=== PATIENT | female | born 1975 | race Caucasian/White ===

== ENCOUNTER 2025-03-08 14:07 | Outpatient (REF) | payer OTHER, SELFPAY ==
--- OUTSIDE RECORDS SUMMARY | 2024-07-13 12:30 | XMS_ITS | Encounter Summary ---
Author Organization [facility] Address [address] [place] [address] Care Team Providers Care Thoracic Surgeon Name Role Phone Corinne Goins PA-C Primary Care Provider [phone] Reason for Visit * Auth/Cert Inpatient Observation or Outpatient Surgery (Routine) - New Request Specialty Diagnoses / Procedures Referred By Nico t Referred To Contact Diagnoses Special screening for malignant neoplasms, colon Special screening for malignant neoplasms, colon [Z12.11] Procedures Case Request: COLONOSCOPY FL COLONOSCOPY FLX DX W/COLLJ SPEC WHEN PFRMD COLONOSCOPY Yung Dutton MD [address] [place] [address] Referral ID Status Reason Start Date Expiration Date V isits Requested Visits Authorized [id number] New Request 06/10/2024 06/10/2025 1 1 Encounter Details Date Type Department Care Team Description 07/13/2024 11:30 AM [facility] Hospital Encounter [facility] Endoscopy [address] [place] [address] Yung Dutton MD Social History Tobacco Use Types Packs/Day Years Used Date Smoking Tobacco: Never Smokeless Tobacco: Never Alcohol Use Standard Drinks/Week Comments Yes 0 (1 standard drink = 0.6 oz pur e alcohol) social Social Connection and Isolat ion Panel [NHANES] Answer Date Recorded In a typical week, how many times do you talk on the phone with family, friends, or neighbors? More than three times a week 07/16/2024 How often do you get togethe r with friends or relatives? More than three times a week 07/16/2024 How often do you attend [facility] or church services? More than 4 times per year 07/16/2024 Do you belong to any clubs o r organizations such as yazdanism groups, unions, fraternal or athletic groups, or school groups? Yes 07/16/2024 How often do you attend meet ings of the clubs or organizations you belong to? More than 4 times per year 07/16/2024 Are you , , di vorced, , never , or living with a partner? 07/16/2024 Overall Financial Resource Strain (CARDIA) Answe r Date Recorded How hard is it for you to pa y for the very basics like food, housing, medical care, and heating? Not hard at all 07/16/2024 Hunger Vital Sign Answer Date Recorded Within the past 12 months, y ou worried that your food would run out before you got the money to buy more. Never true 07/16/20 24 Within the past 12 months, t he food you bought just didn't last and you didn't have money to get more. Never true 07/16/2024 PRAPARE - Transportation Answer Date Re corded In the past 12 months, has l ack of transportation kept you from medical appointments or from getting medications? No 07/02 In the past 12 months, has l ack of transportation kept you from meetings, work, or from getting things needed for daily living? No 07/16/2024 Housing Stability Vital Sign Answer Stefan e Recorded In the last 12 months, was t here a time when you were not able to pay the mortgage or rent on time? No 07/16/2024 In the last 12 months, how many places have you lived? 1 07/16/2024 In the last 12 months, was t here a time when you did not have a steady place to sleep or slept in a snf (including now)? No 07/16/2024 Sex and Gender Information Value Date Recorded Sex Assigned at Female 03/22/2021 10:24 AM EDT Gender Identity Female 03/22/2021 10:24 AM EDT Sexual Orientation Not on file Job Start Date Occupation Industry Not on file Not on file Not on file documented as of this encounter Plan of Treatment Not on file documented as of this encounter Visit Diagnoses Diagnosis Special screening for malignant neoplasms, colon- Primary documented in this encounter Admitting Diagnoses Diagnosis Special screening for malignant neoplasms, colon documented in this encounter Care Teams Thoracic Surgeon Relationship Specialty Start Date End Date Corinne Goins PA-C PCP - General Family Medicine 03/15/24 documented as of this encounter
--- NOTE | ~2025-03-08 | XR_ITS ---
EXAMINATION: XR SCOLIOSIS TECHNIQUE: AP views of the cervical, thoracic, and lumbar spine. There was stitching of the AP views. INDICATION: Scoliosis PRIOR: None FINDINGS: Coronal balance: Neutral. The geometric center of C7 projected to the center of S1. Curvature: Cervical thoracic: 18 degrees convex left with apex at T4. Thoracolumbar: 27 degrees convex right with apex at T10 Lumbar: 33 degrees convex left with apex at L3-4. There is a mild rotational component in the lumbar spine. Moderate degenerative disc disease and facet arthropathy is noted along the right side of the lumbar spine. There is sclerosis and narrowing of the right SI joint. [place] Risser Stage: 5: Completely ossified iliac crest apophysis and closed physis. XR/XR scoliosis survey IMPRESSION: Moderate scoliosis with mild rotational component and degenerative changes in the lumbar spine with a neutral coronal balance. Electronically signed by: Arnav Ryder MD 03/08/2025 02:57 PM EDT
--- OUTSIDE RECORDS SUMMARY | 2025-03-08 15:01 | XMS_ITS | Encounter Summary ---
Author Organization [facility] Address [address] [place] [id number] Care Team Providers Care Loss Prevention Guard Name Role Phone Hailee Elliott APRN Primary Care Provider Un available Thang Christian MD Primary Care Provider [phone] Encounter Details Date Type Department Care Team (Late st Contact Info) Description 09/30/2023 Scanned Document [facility] Department of Internal Medicine [place] [address] [place] [phone] Hailee Elliott APRN *need valid address Social History Tobacco Use Types Packs/Day Years Used Date Smoking Tobacco: Never Smokeless Tobacco: Never Alcohol Use Standard Drinks/Week Comments Yes 0 (1 standard drink = 0.6 oz pur e alcohol) Comments Unknown Sex and Gender Information Value Date Recorded Sex Assigned at Female 06/22/2023 5:16 PM EDT Legal Sex Female 7:53 PM EST Gender Identity Not on file Sexual Orientation Not on file documented as of this encounter Plan of Treatment Upcoming Encounters Date Type Department Care Team (Late st Contact Info) Description 04/14/2025 7:40 AM EDT Consult [facility] [place] [facility] [address] [place] [phone] Lorena Schafer APRN 7 [facility] [address] [place] [phone] documented as of this encounter Visit Diagnoses Not on filedocumented in this encounter Care Teams Loss Prevention Guard Relationship Specialty Start Date End Date Hailee Elliott APRN PCP - General Internal Medicine 10/16/22 03/16/24 Thang Christian MD PCP - General Family Medicine 04/05/24 documented as of this encounter
--- OUTSIDE RECORDS SUMMARY | 2025-03-08 15:01 | XMS_ITS | Patient Health Record ---
Author Organization [facility] [address] Address [address] [place] [address] Care Team Providers Care Speech Language Pathology Assistant Name Role Phone SethCorinne barnard Primary Care Provider DIMAS Thomson Unavailable [phone] Allergies No Known Allergies Reason For Referral No Information Medications Medication SIG (Take, Route, Frequency, Duration) Notes Start Date End Date Status hydroCHLOROthiazide 25 MG 1 tablet in th e morning Orally Once a day Active Losartan Potassium 25 MG 1 tablet Orally Once a day Active Problems Problem Type SNOMED Code ICD Code Onset Dates Problem Status W/U Status Risk Notes Problem Essential hypertension (64448657) Essential (primary) hypertension (I10) Active confirmed Problem Obese class II (763190418211639 ) BMI 39.0-39.9,adult (Z68.39) Active confirmed Problem Morbid obesity (573309637) Severe obesity (BMI 35.0-39.9) with comorbidity (E66.01) Active confirmed Vital Signs Heart Rate 84 /min 03/08/2025 Oximetry 99 % 03/08/2025 Blood pressure diastolic 78 mm Hg 03/08/2025 Height 66 in 03/08/2025 Blood pressure systolic 130 mm Hg 03/08/2025 Weight 246.8 lbs 03/08/2025 BMI 39.83 kg/m2 03/08/2025 Encounters Encounter Location Date Provider Diagnosis [facility] [address] [place] [address] 03/08/2025 DIMAS ANGLIN Severe obesity (BMI 35.0-39.9) with comorbidity E66.01 ; BMI 39.0-39.9,adult Z68.39 and Encounter for examination of blood pressure without abnormal findings Z01.30 Assessments Encounter Date Diagnosis (ICD Code) Assessment Notes Treatment Notes Treatment Clinical Notes Section Notes 03/08/2025 BMI 39.0-39.9,adul t (ICD-10 - Z68.39) Melissa is a 50-year-old female with a past medical history of essential hypertension, waking, arthritis who presents to the office today for weight management. 03/08/2025: BMI 39.83, weight 246.8 holding off on prescribing GLP-1 as patient is due to have a spinal fusion soon. After surgery will convene about Zepbound. We spent a lot of time discussing the relationship between food, exercise, sleep, mental health and obesity. Patient was counseled on the importance EATING local, organic food when possible. Patient was educated on clean 15 and dirty dozen. I provided information about reading books called The Food Rules by Dave Coley and Eat Fat Get Lean by Dr Mal Rust. Self education is important in the journey for weight management. Patient was offered diagnostic testing. We want to measure visceral adiposity, advanced body composition, adverse lipids, fatty acid balance, risk for heart disease and atherosclerosis, markers of inflammation and genetic susceptibility. Patient was counseled on weight management and was advised to lose weight using A. Meal Replacement Products Patient was educated on the replacement products called optifast. This is a good way of taking fixed amount of calories. It has been shown in studies to be ineffective weight management tool. This however has to be coupled with lifestyle intervention as well as laboratory data and EKG monitoring. It is impossible to know how a person will tolerate complete meal replacement. The side effects of meal replacement and weight loss could include syncopal attacks, dizziness, gallstones, potential cholecystectomy, possible heart attack and even . The benefits of meal replacement would be potential weight loss but no guarantees can be made. Meal replacement products are not covered by insurance. Once the patient has bought these products we cannot return them B. Lifestyle management which includes several strategies as below 1. Eat a low carbohydrate good fat good protein diet. Eliminate refined carbohydrates from the diet. Continue blood sugar and sugared beverages. Eat local organic when possible. Cook your own meals. Read food labels. None about healthy snacks. Portion control and food with low glycemic index 2. Exercise regularly. Try to get at least 6000 steps a day. Use a predominant to track activity level. Consider using apps like Excorda, myfitnesspal, lose it, stick as needed for self-monitoring and weight management. Consider group exercises. Consider hiring a radio personality. Regular exercise is yarbrough to sustainable health and prevents as a buffer against weight regain 3. Sleep is most important for healing. Tried to sleep at least 8 hours a night. A good quality sleep needs a sleep ritual with ideal room temperature of around 68. It might help to take a shower and have no electronics in the room and sleep in a very dark room without artificial light. Start her sleep routine and get up early in the morning and go to bed on time 4. Make a social connection. Surround yourself with positive people with positive energy. Connect with friends and family. 5. Get into the habit of meditating and mindfulness while doing everything. 6. Go outside and connect with nature. C. Prescription medications Patient was educated on the use of prescription medications for medical weight loss. This is a growing list and includes phentermine, Topamax,Qsymia, contrave, belviq and saxenda. All prescription medications could have side effects including but not limited to kidney stones seizure disorder cardiac arrhythmias heart attack pancreatitis etc. etc.. Patient was encouraged to read the prescription insert and have coaching with their pharmacist and make an informed decision about taking medication and know that these medications are being prescribed with good intentions and we do not know how a patient would react to her medication. Sudden medications are FDA approved for weight loss and there is also off label use depending on patient's inability to afford medications in an attempt to lose weight D. Behavioral counseling was done to establish a relationship between food and an mood. Patient was provided information about local counseling including the office of Dr. Savage in [place] and Dr Conn at [facility]. We would like to cover regular topics and build on low glycemic eating exercise mindful eating, using yoga and meditation along with deep breathing and connecting with friends and family. E. Patient's current medications were reviewed and opinion was given on medication that can cause weight gain and can be substituted F. Patient was assessed for risk with obesity including and not limiting to atherosclerosis heart disease stroke kidney disease, restrictive lung disease, irritable bowel syndrome and overall mortality. Risk of developing prediabetes diabetes and metabolic syndrome was discussed G. Therapeutic plan: We have decided to make therapeutic plan which would include choosing wisely on calories restricting portion getting active, tracking weight, getting good quality sleep and working on time management H. Patient will follow up in 4 weeks for weight management Total time spent today was 60 minutes of which greater than 50% was spent on coordinating and counseling All questions have been answered to patient's satisfaction. Patient verbalized understanding of diagnosis and treatments explained. Advised to call sooner prior to next visit it any questions/concerns arise. Case discussed with Ricco RENEE who reviewed the assessment and plan. Chart, medications, labs, vital signs reviewed. Dictation was accomplished with the use of [employer] voice recognition software, which is prone to medical misidentifications and grammatical errors. This are unintentional and the practitioner does try to identify and correct these, but some could still be present. Please do not hesitate to contact practitioner for clarification. 03/08/2025 Severe obesity (BMI 35.0-39.9) with comorbidity (ICD-10 - E66.01) Melissa is a 50-year-old female with a past medical history of essential hypertension, waking, arthritis who presents to the office today for weight management. 03/08/2025: BMI 39.83, weight 246.8 holding off on prescribing GLP-1 as patient is due to have a spinal fusion soon. After surgery will convene about Zepbound. We spent a lot of time discussing the relationship between food, exercise, sleep, mental health and obesity. Patient was counseled on the importance EATING local, organic food when possible. Patient was educated on clean 15 and dirty dozen. I provided information about reading books called The Food Rules by Dave Coley and Eat Fat Get Lean by Dr Mal Rust. Self education is important in the journey for weight management. Patient was offered diagnostic testing. We want to measure visceral adiposity, advanced body composition, adverse lipids, fatty acid balance, risk for heart disease and atherosclerosis, markers of inflammation and genetic susceptibility. Patient was counseled on weight management and was advised to lose weight using A. Meal Replacement Products Patient was educated on the replacement products called optifast. This is a good way of taking fixed amount of calories. It has been shown in studies to be ineffective weight management tool. This however has to be coupled with lifestyle intervention as well as laboratory data and EKG monitoring. It is impossible to know how a person will tolerate complete meal replacement. The side effects of meal replacement and weight loss could include syncopal attacks, dizziness, gallstones, potential cholecystectomy, possible heart attack and even . The benefits of meal replacement would be potential weight loss but no guarantees can be made. Meal replacement products are not covered by insurance. Once the patient has bought these products we cannot return them B. Lifestyle management which includes several strategies as below 1. Eat a low carbohydrate good fat good protein diet. Eliminate refined carbohydrates from the diet. Continue blood sugar and sugared beverages. Eat local organic when possible. Cook your own meals. Read food labels. None about healthy snacks. Portion control and food with low glycemic index 2. Exercise regularly. Try to get at least 6000 steps a day. Use a predominant to track activity level. Consider using apps like Excorda, Cuyanapal, lose it, stick as needed for self-monitoring and weight management. Consider group exercises. Consider hiring a radio personality. Regular exercise is yarbrough to sustainable health and prevents as a buffer against weight regain 3. Sleep is most important for healing. Tried to sleep at least 8 hours a night. A good quality sleep needs a sleep ritual with ideal room temperature of around 68. It might help to take a shower and have no electronics in the room and sleep in a very dark room without artificial light. Start her sleep routine and get up early in the morning and go to bed on time 4. Make a social connection. Surround yourself with positive people with positive energy. Connect with friends and family. 5. Get into the habit of meditating and mindfulness while doing everything. 6. Go outside and connect with nature. C. Prescription medications Patient was educated on the use of prescription medications for medical weight loss. This is a growing list and includes phentermine, Topamax,Qsymia, contrave, belviq and saxenda. All prescription medications could have side effects including but not limited to kidney stones seizure disorder cardiac arrhythmias heart attack pancreatitis etc. etc.. Patient was encouraged to read the prescription insert and have coaching with their pharmacist and make an informed decision about taking medication and know that these medications are being prescribed with good intentions and we do not know how a patient would react to her medication. Sudden medications are FDA approved for weight loss and there is also off label use depending on patient's inability to afford medications in an attempt to lose weight D. Behavioral counseling was done to establish a relationship between food and an mood. Patient was provided information about local counseling including the office of Dr. Savage in [place] and Dr Conn at [facility]. We would like to cover regular topics and build on low glycemic eating exercise mindful eating, using yoga and meditation along with deep breathing and connecting with friends and family. E. Patient's current medications were reviewed and opinion was given on medication that can cause weight gain and can be substituted F. Patient was assessed for risk with obesity including and not limiting to atherosclerosis heart disease stroke kidney disease, restrictive lung disease, irritable bowel syndrome and overall mortality. Risk of developing prediabetes diabetes and metabolic syndrome was discussed G. Therapeutic plan: We have decided to make therapeutic plan which would include choosing wisely on calories restricting portion getting active, tracking weight, getting good quality sleep and working on time management H. Patient will follow up in 4 weeks for weight management Total time spent today was 60 minutes of which greater than 50% was spent on coordinating and counseling All questions have been answered to patient's satisfaction. Patient verbalized understanding of diagnosis and treatments explained. Advised to call sooner prior to next visit it any questions/concerns arise. Case discussed with Ricco RENEE who reviewed the assessment and plan. Chart, medications, labs, vital signs reviewed. Dictation was accomplished with the use of [employer] voice recognition software, which is prone to medical misidentifications and grammatical errors. This are unintentional and the practitioner does try to identify and correct these, but some could still be present. Please do not hesitate to contact practitioner for clarification. 03/08/2025 Encounter for examination of blood pressure without abnormal findings (ICD-10 - Z01.30) Melisas is a 50-year-old female with a past medical history of essential hypertension, waking, arthritis who presents to the office today for weight management. 03/08/2025: BMI 39.83, weight 246.8 holding off on prescribing GLP-1 as patient is due to have a spinal fusion soon. After surgery will convene about Zepbound. We spent a lot of time discussing the relationship between food, exercise, sleep, mental health and obesity. Patient was counseled on the importance EATING local, organic food when possible. Patient was educated on clean 15 and dirty dozen. I provided information about reading books called The Food Rules by Dave Coley and Eat Fat Get Lean by Dr Mal Rust. Self education is important in the journey for weight management. Patient was offered diagnostic testing. We want to measure visceral adiposity, advanced body composition, adverse lipids, fatty acid balance, risk for heart disease and atherosclerosis, markers of inflammation and genetic susceptibility. Patient was counseled on weight management and was advised to lose weight using A. Meal Replacement Products Patient was educated on the replacement products called optifast. This is a good way of taking fixed amount of calories. It has been shown in studies to be ineffective weight management tool. This however has to be coupled with lifestyle intervention as well as laboratory data and EKG monitoring. It is impossible to know how a person will tolerate complete meal replacement. The side effects of meal replacement and weight loss could include syncopal attacks, dizziness, gallstones, potential cholecystectomy, possible heart attack and even . The benefits of meal replacement would be potential weight loss but no guarantees can be made. Meal replacement products are not covered by insurance. Once the patient has bought these products we cannot return them B. Lifestyle management which includes several strategies as below 1. Eat a low carbohydrate good fat good protein diet. Eliminate refined carbohydrates from the diet. Continue blood sugar and sugared beverages. Eat local organic when possible. Cook your own meals. Read food labels. None about healthy snacks. Portion control and food with low glycemic index 2. Exercise regularly. Try to get at least 6000 steps a day. Use a predominant to track activity level. Consider using apps like Excorda, myfitKicknote.compal, lose it, stick as needed for self-monitoring and weight management. Consider group exercises. Consider hiring a radio personality. Regular exercise is yarbrough to sustainable health and prevents as a buffer against weight regain 3. Sleep is most important for healing. Tried to sleep at least 8 hours a night. A good quality sleep needs a sleep ritual with ideal room temperature of around 68. It might help to take a shower and have no electronics in the room and sleep in a very dark room without artificial light. Start her sleep routine and get up early in the morning and go to bed on time 4. Make a social connection. Surround yourself with positive people with positive energy. Connect with friends and family. 5. Get into the habit of meditating and mindfulness while doing everything. 6. Go outside and connect with nature. C. Prescription medications Patient was educated on the use of prescription medications for medical weight loss. This is a growing list and includes phentermine, Topamax,Qsymia, contrave, belviq and saxenda. All prescription medications could have side effects including but not limited to kidney stones seizure disorder cardiac arrhythmias heart attack pancreatitis etc. etc.. Patient was encouraged to read the prescription insert and have coaching with their pharmacist and make an informed decision about taking medication and know that these medications are being prescribed with good intentions and we do not know how a patient would react to her medication. Sudden medications are FDA approved for weight loss and there is also off label use depending on patient's inability to afford medications in an attempt to lose weight D. Behavioral counseling was done to establish a relationship between food and an mood. Patient was provided information about local counseling including the office of Dr. Savage in [place] and Dr Conn at [facility]. We would like to cover regular topics and build on low glycemic eating exercise mindful eating, using yoga and meditation along with deep breathing and connecting with friends and family. E. Patient's current medications were reviewed and opinion was given on medication that can cause weight gain and can be substituted F. Patient was assessed for risk with obesity including and not limiting to atherosclerosis heart disease stroke kidney disease, restrictive lung disease, irritable bowel syndrome and overall mortality. Risk of developing prediabetes diabetes and metabolic syndrome was discussed G. Therapeutic plan: We have decided to make therapeutic plan which would include choosing wisely on calories restricting portion getting active, tracking weight, getting good quality sleep and working on time management H. Patient will follow up in 4 weeks for weight management Total time spent today was 60 minutes of which greater than 50% was spent on coordinating and counseling All questions have been answered to patient's satisfaction. Patient verbalized understanding of diagnosis and treatments explained. Advised to call sooner prior to next visit it any questions/concerns arise. Case discussed with Ricco RENEE who reviewed the assessment and plan. Chart, medications, labs, vital signs reviewed. Dictation was accomplished with the use of [employer] voice recognition software, which is prone to medical misidentifications and grammatical errors. This are unintentional and the practitioner does try to identify and correct these, but some could still be present. Please do not hesitate to contact practitioner for clarification. Plan Of Treatment Next Appt Details Provider Name:DIMAS DERREK, 09:00:00 AM, [address], [place], [id number], Insurance Providers Payer Name Payer Address Payer Phone Subscriber Number Group Number Insured Name Patient Relationship to Insured Coverage Start Date Coverage End Date [facility] [address] [facility] [id number] Wendy Dickinson Self - patient is the insured 4 Medical (General) History Medical History History ICD Code weight gain/loss Arthritis Essential (primary) hypertension I10 Hospitalization History Reason Date(Month/Year) childbirthx2
--- OUTSIDE RECORDS SUMMARY | 2025-03-08 15:01 | XMS_ITS | Clinical Summary ---
Author Organization [facility] Address [address] [place] [address] Phone Care Team Providers Care Blender Conveyor Operator Name Role Phone Corinne Goins Primary Care Provider [phone] Allergies No known active allergies Medications hydroCHLOROthiaz aleksander (HYDRODIURIL) 25 mg tablet Take 1 tablet (25 mg total) by mouth 1 (one) time each day. Active omeprazole OTC (PriLOSEC OTC) 20 mg EC tablet Take 1 tablet (20 mg total) by mouth 1 (one) time each day. Do not crush, chew, or split. Active Gu-Win's wort 300 mg capsule Take 900 mg by mouth 1 (one) time each day. Active Lactobacillus combination no.8 (ADULT PROBIOTIC ORAL) Take 1 tablet by mouth 1 (one) time each day. Active Immunizations Name Administration Dates Next Due Pfizer SARS-CoV-2 COVID-19, mRNA, LNP-S, preservative free 06/14/2021 Surgical History Surgery Date Site/Laterality Comments BREAST BIOPSY 05/08/2021 Right PROCEDURE:BREAST BIOPSY;COMMENT:Stereo bx COLONOSCOPY PROCEDURE:COLONOSCOPY;COMMENT:when 20's due to food poisoning Medical History Medical History Date Comments Hypertension DX:Hypertension GERD (gastroesophageal reflux disease) Family History Medical History Relation Name Comments No Known Problems Daughter 1 No Known Problems Daughter 2 Dementia Father all related to exposure agent orange Heart disease Father Liver cancer Maternal Grandfather No Known Problems Maternal Grandmother Fibromyalgia Mother Lymphoma Mother Cancer Niece rhabdosarcoma No Known Problems Paternal Grandfather No Known Problems Paternal Grandmother Other: Sister genetic predisp osition for cancer; MUTYH carrier Breast cancer Neg Hx Ovarian cancer Neg Hx Relation Name Status Comments Daughter 1 Alive Daughter 2 Alive Father Alive Maternal Grandfather Maternal Grandmother Mother Niece Paternal Grandfather Paternal Grandmother Sister Social History Tobacco Use Types Packs/Day Years Used Date Smoking Tobacco: Never Smokeless Tobacco: Never Alcohol Use Standard Drinks/Week Comments Yes 0 (1 standard drink = 0.6 oz pur e alcohol) occasionally Interpersonal Safety Answer Date Record ed Physical Abuse 07/13/2024 Verbal Abuse 07/13/2024 Comments No Sex and Gender Information Value Date Recorded Sex Assigned at Female 07/11/2024 12:49 PM EST Legal Sex Female 6:51 PM EST Gender Identity Female 07/11/2024 12:49 PM EST Sexual Orientation Straight 07/11/2024 12 :49 PM EST Obstetrics History Last Filed Vital Signs Vital Sign Reading Time Taken Comments Blood Pressure 124/76 07/13/2024 2:15 PM EST Pulse 64 07/13/2024 2:15 PM EST Temperature 37.2 C (99 F) 07/13/2024 11:40 AM EST Respiratory Rate 14 07/13/2024 2:15 PM EST Oxygen Saturation 99% 07/13/2024 2:15 PM EST Inhaled Oxygen Concentration - - Weight 102 kg (225 lb) 07/09/2024 2:00 PM EST Height 167.6 cm (5' 6 ) 07/09/2024 2:00 PM EST Body Mass Index 36.32 07/09/2024 2:00 PM EST Plan of Treatment Health Maintenance Due Date Last Done Comments Hepatitis B Vaccines (1 of 3 - 19+ 3-dose series) 01/18/1996 Cervical Cancer Screening: Pap Smear 1998 Depression Screening 08/03/2022 HIV Screening 08/03/2022 Hepatitis C Screening 08/03/2022 Social Influencers of Health Screening 08/03/2022 Breast Cancer Screening 04/18/2024 04/18/20 22, 09/03/2021, 04/23/2021, Additional history exists COVID-19 Vaccine () 05/02/2024 06/14/2021, 11/21/2020, 10/31/2020 Influenza Vaccine (#1) 2025 4, 07/31/2021, 07/19/2020, Additional history exists Hypertension/CHF/CAD Annual BMP Blood Test 12/23/2025 12/23/2024 Cholesterol Screening (Lipid Panel) 12/23/2029 12/23/2024 DTaP,Tdap,and Td Vaccines (4 - Td or Tdap) 04/22/2032 04/22/2022, 04/22/2022, 04/20/2021 Colorectal Cancer Screening: Colonoscopy 07/13/2034 07/13/2024 HIB Vaccines Aged Out No longer eligi ble based on patient's age to complete this topic HPV Vaccines Aged Out No longer eligi ble based on patient's age to complete this topic Hepatitis A Vaccines Aged Out No long er eligible based on patient's age to complete this topic IPV Vaccines Aged Out No longer eligi ble based on patient's age to complete this topic MMR Vaccines Aged Out No longer eligi ble based on patient's age to complete this topic Meningococcal ACWY Vaccine Aged Out N o longer eligible based on patient's age to complete this topic Meningococcal B Vaccine Aged Out No l onger eligible based on patient's age to complete this topic Pneumococcal Vaccine: Pediatrics (0 to 5 Years) and At-Risk Patients (6 to 49 Years) Aged Out No longer eligible based on patient's age to complete this topic RSV Immunization Patients Under 20 months Aged Out No longer eligible based on patient's age to complete this topic Varicella Vaccines Aged Out No longer eligible based on patient's age to complete this topic Procedures Procedure Name Priority Date/Time Associated Diagnosis Comments COLONOSCOPY Routine 07/13/2024 1:53 PM EST Special screening for malignant neoplasms, colon MAMMOGRAM SCREENING BILATERAL 3D CASSIDY WITH CAD Routine 04/18/2022 10:42 AM EDT Encounter for screening mammogram for malignant neoplasm of breast from Last 3 Months or Most Recently Relevant to Health Maintenance Results * COLONOSCOPY Anesthesia - MAC; [facility] (07/13/2024 1:53 PM EST) Anatomical Region Laterality Modality Endoscopy 07/13/2024 1:06 PM EST Narrative 07/13/2024 1:54 PM EST [facility] GI Patient Name: Procedure Date: 07/13/2024 1:06 PM Date of : 1975 Age: 49 Gender: Female Note Status: Finalized Attending MD: Yung Dutton MD, Procedure Date No Time: 07/13/2024 Procedure: Colonoscopy Indications: Screening for colorectal malignant neoplasm, Last colonoscopy: 2002 Providers: Yung Dutton MD (Doctor) Referring MD: Yung Dutton MD (Referring MD) Medicines: Monitored Anesthesia Care Complications: No immediate complications. Procedure: Pre-Anesthesia Assessment: - ASA Grade Assessment: II - A patient with mild systemic disease. After I obtained informed consent, the scope was passed under direct vision. Throughout the procedure, the patient's blood pressure, pulse, and oxygen saturations were monitored continuously. The Colonoscope Pedi [id number] was introduced through the anus and advanced to the cecum, identified by appendiceal orifice and ileocecal valve. The ileocecal valve, appendiceal orifice, and rectum were photographed. The bowel preparation used was SUPREP via split dose instruction. Findings: The perianal and digital rectal examinations were normal. Three pedunculated and sessile polyps were found in the sigmoid colon. The polyps were 3 to 5 mm in size. These polyps were removed with a cold snare. Resection and retrieval were complete. Verification of patient identification for the specimen was done. Estimated blood loss was minimal. Scattered medium-mouthed diverticula were found in the sigmoid colon and descending colon. Retroflexion in the right colon was performed. The exam was otherwise without abnormality on direct and retroflexion views. Impression: - Three 3 to 5 mm polyps in the sigmoid colon, removed with a cold snare. Resected and retrieved. - Diverticulosis in the sigmoid colon and in the descending colon. - The examination was otherwise normal on direct and retroflexion views. Recommendation: - Patient has a contact number available for emergencies. The signs and symptoms of potential delayed complications were discussed with the patient. Return to normal activities tomorrow. Written discharge instructions were provided to the patient. - Resume previous diet. - Continue present medications. - Await pathology results. - Repeat colonoscopy is recommended. The colonoscopy date will be determined after pathology results from today's exam become available for review. Procedure Code(s): --- Professional --- 65388, Colonoscopy, flexible; with removal of tumor(s), polyp(s), or other lesion(s) by snare technique Diagnosis Code(s): --- Professional --- Z12.11, Encounter for screening for malignant neoplasm of colon D12.5, Benign neoplasm of sigmoid colon K57.30, Diverticulosis of large intestine without perforation or abscess without bleeding CPT copyright 2020 [employer]. All rights reserved. The codes documented in this report are preliminary and upon hog dropper review may be revised to meet current compliance requirements. Attending Participation: I was present and participated during the entire procedure, including non-yarbrough portions. Yung Dutton MD 07/13/2024 1:53:45 PM This report has been signed electronically.Yung Dutton MD Number of Addenda: 0 Note Initiated On: 07/13/2024 1:06 PM Scope In: Scope Out: Endoscopy Department at [place] - [address] [place] [address] Procedure Note Yung Dutton MD - 07/13/2024 [facility] GI Patient Name: Procedure Date: 07/13/2024 1:06 PM Date of : 1975 Age: 49 Gender: Female Note Status: Finalized Attending MD: Yung Dutton MD, Procedure Date No Time: 07/13/2024 Procedure: Colonoscopy Indications: Screening for colorectal malignant neoplasm, Last colonoscopy: 2002 Providers: Yung Dutton MD (Doctor) Referring MD: Yung Dutton MD (Referring MD) Medicines: Monitored Anesthesia Care Complications: No immediate complications. Procedure: Pre-Anesthesia Assessment: - ASA Grade Assessment: II - A patient with mild systemic disease. After I obtained informed consent, the scope was passed under direct vision. Throughout the procedure, the patient's blood pressure, pulse,and oxygen saturations were monitored continuously.The Colonoscope Pedi [id number] was introduced throughthe anus and advanced to the cecum, identified by appendiceal orifice and ileocecal valve. The ileocecal valve, appendiceal orifice, and rectum were photographed. The bowel preparation used was SUPREP via split dose instruction. Findings: The perianal and digital rectal examinations were normal. Three pedunculated and sessile polyps were foundin the sigmoid colon. The polyps were 3 to 5 mm in size. These polyps were removed with a coldsnare. Resection and retrieval were complete.Verification of patient identification for the specimen wasdone. Estimated blood loss was minimal. Scattered medium-mouthed diverticula were foundin the sigmoid colon and descending colon. Retroflexion in the right colon was performed. The exam was otherwise without abnormality ondirect and retroflexion views. Impression: - Three 3 to 5 mm polyps in the sigmoid colon, removed with a cold snare. Resected andretrieved. - Diverticulosis in the sigmoid colon and in the descending colon. - The examination was otherwise normal on directand retroflexion views. Recommendation: - Patient has a contact number available for emergencies. The signs and symptoms of potential delayed complications were discussed with the patient. Return to normal activities tomorrow. Written discharge instructions were provided tothe patient. - Resume previous diet. - Continue present medications. - Await pathology results. - Repeat colonoscopy is recommended. Thecolonoscopy date will be determined after pathology resultsfrom today's exam become available for review. Procedure Code(s): --- Professional --- 83465, Colonoscopy, flexible; with removal of tumor(s), polyp(s), or other lesion(s) by snare technique Diagnosis Code(s): --- Professional --- Z12.11, Encounter for screening for malignant neoplasm of colon D12.5, Benign neoplasm of sigmoid colon K57.30, Diverticulosis of large intestine without perforation or abscess without bleeding CPT copyright 2020 [employer]. All rights reserved. The codes documented in this report are preliminary and upon hog dropper reviewmay be revised to meet current compliance requirements. Attending Participation: I was present and participated during the entire procedure, including non-yarbrough portions. Yung Dutton MD 07/13/2024 1:53:45 PM This report has been signed electronically.Yung Dutton MD Number of Addenda: 0 Note Initiated On: 07/13/2024 1:06 PM Scope In: Scope Out: Endoscopy Department at [place] [id number] us Yung Dutton MD GI~PROCEDURE ORDERABLES Final Result * MAMMOGRAM SCREENING BILATERAL 3D CASSIDY WITH CAD (04/18/2022 10:42 AM EDT) Anatomical Region Laterality Modality Mammography 09/05/2021 4:32 PM EST Narrative 04/18/2022 3:09 PM EDT This is a summary report. The complete report is available in the patient's medical record. If you cannot access the medical record, please contact the sending organization for a detailed fax or copy. EXAM PERFORMED: Mammogram Screening Bilateral 3D Cassidy with CAD EXAM HISTORY: Visit for screening mammogram COMPARISON: 09/03/2021, 05/10/2021 and 05/08/2021 TECHNIQUE: Bilateral full field digital mammography with synthesized (2D) and Tomosynthesis (3-D) was performed using standard CC and MLO projections. Mammogram was interpreted in correlation with CAD and Tomosynthesis. FINDINGS: Previously biopsied (benign) cluster of microcalcifications is seen in the outer right breast, probably unchanged. Otherwise scattered fibroglandular densities appear unchanged. No new masses, architectural distortion, skin thickening or nipple retraction seen. No enlarged axillary lymph nodes seen. BREAST DENSITY: Heterogeneously dense breast parenchyma. (50-75% fibroglandular tissue). This may lower the sensitivity of mammography. Density C. IMPRESSION: 1. Stable mammographic findings with no evidence of malignancy. 2. Patient should continue with yearly screening mammography. NOTE: The results of this examination have been communicated to the patient through a lay letter in accordance with the Mammography Quality Standards Act. BI-RAD 2- BENIGN FINDINGS 3342F Report reviewed and signed by : Dr. Sy Pacheco MD on 04/18/2022 3:09 PM. Workstation Name - [id number] Procedure Note Sy Pacheco MD - 08/25/2022 This is a summary report. The complete report is available in thepatient's medical record. If you cannot access the medical record, pleasecontact the sending organization for a detailed fax or copy. EXAM PERFORMED: Mammogram Screening Bilateral 3D Cassidy with CAD EXAM HISTORY: Visit for screening mammogram COMPARISON: 09/03/2021, 05/10/2021 and 05/08/2021 TECHNIQUE: Bilateral full field digital mammography with synthesized (2D)and Tomosynthesis (3-D) was performed using standard CC and MLOprojections. Mammogram was interpreted in correlation with CAD andTomosynthesis. FINDINGS: Previously biopsied (benign) cluster of microcalcifications is seen in theouter right breast, probably unchanged. Otherwise scattered fibroglandulardensities appear unchanged. No new masses, architectural distortion, skinthickening or nipple retraction seen. No enlarged axillary lymph nodes seen. BREAST DENSITY: Heterogeneously dense breast parenchyma. (50-75% fibroglandular tissue).This may lower the sensitivity of mammography. Density C. IMPRESSION: 1. Stable mammographic findings with no evidence of malignancy. 2. Patient should continue with yearly screening mammography. NOTE: The results of this examination have been communicated to thepatient through a lay letter in accordance with the Mammography QualityStandards Act. BI-RAD 2- BENIGN FINDINGS 3342F Report reviewed and signed by : Dr. Sy Pacheco MD on 04/18/2022 3:09 PM.Workstation Name - [id number] Arden Reza MD IMG BI PROCEDURES Final Resul t from Last 3 Months or Most Recently Relevant to Health Maintenance Insurance Advance Directives * Full Code - Default (Latest Code Status on File) Date Activated Date Inactivated Comments 07/13/2024 11:47 AM 07/17/2024 4:27 AM This is o rder is used when code status has not been discussed with the patient, or code status is otherwise unknown/unconfirmed To update the patient's code status, place a code status order. Do not modify or discontinue any currently active code status orders. Care Teams Blender Conveyor Operator Relationship Specialty Start Date End Date Corinne Goins PA PCP - General 03/15/24
--- OUTSIDE RECORDS SUMMARY | 2025-03-08 15:02 | XMS_ITS ---
Author Name [facility] Organization Unknown Results Test Name/Text Value Interpretation Date Range Source Citation Ref Lab Test The technical components of this case were performed at [address] [address] CLIA # [id number] Normal 07/14/2024 [facility]_THSFRAN History of Medication Use Medication Directions Dispensed Refills Start Date End Date Status lidocaine (PF) 100 mg/5 mL (2 %) injection syringe Take 4 mL by injection route. 5 active triamcinolone acetonide 40 mg/mL suspension for injection Take 40 mg by injection route. 5 active phentermine 15 mg capsule Take 1 capsule every day by oral route for 30 days. 5 025 completed losartan 25 mg tablet TAKE 1 TABLET BY MOUTH EVERY DAY 5 active tirzepatide, weight loss, (Zepbound) 2.5 mg/0.5 mL pnij Inject 2.5 mg subcutaneously every 7 days 5 active losartan (COZAAR) 25 MG tablet Take 1 tablet every day by oral route. 5 active hydrochlorothiazide 25 mg tablet Take 1 tablet (25 mg total) by mouth daily. 5 active sodium,potassium,mag sulfates 17.5 gram-3.13 gram-1.6 gram oral soln Take 177 mL by mouth See admin instructions. Use as directed for bowel preparation 4 025 completed Clenpiq 10 mg-3.5 gram-12 gram/160 mL oral solution Take 2 Bottles by mouth once for 1 dose. Take per [facility] instructions 4 024 completed Ozempic 2 mg/dose (8 mg/3 mL) subcutaneous pen injector Inject 0.75 mL (2 mg total) under the skin once a week. 4 025 completed scopolamine (TRANSDERM-SCOP) patch Place 1 patch on the skin every third day (72 hrs). Start 4 hours prior to needing prevention of motion sickness 4 active ergocalciferol 74821 units Cap Take 1 capsule (50,000 Units total) by mouth once a week. 4 active Ozempic, 1 MG/DOSE, 4 MG/3ML prefilled pen injection INJECT 1 MG UNDER THE SKIN ONCE A WEEK. 3 active fluconazole (diFLUcan) 150 MG tablet TAKE 1 TABLET ONCE 3 active hydroCHLOROthiazide (HYDRODIURIL) 25 MG tablet Take 1 tablet (25 mg total) by mouth daily. 3 active hydroCHLOROthiazide (HYDRODIURIL) 25 MG tablet Take 1 tablet (25 mg total) by mouth daily. 1 active ergocalciferol (ERGOCALCIFEROL) 1,250 mcg (50,000 unit) capsule Take 1 capsule (50,000 Units total) by mouth 1 active ergocalciferol 98906 units Cap Take by mouth. 1 active clotrimazole-betamethas one (LOTRISONE) cream Apply topically 2 (two) times a day in the morning and the early evening.. 1 active fluconazole 150 mg tablet TAKE 1 TABLET BY MOUTH ONCE 025 completed phentermine 15 mg capsule TAKE 1 CAPSULE BY MOUTH EVERY DAY 025 completed sodium,potassium,mag sulfates 17.5 gram-3.13 gram-1.6 gram oral soln TAKE 177 ML BY MOUTH SEE ADMIN INSTRUCTIONS. USE DIRECTED FOR BOWEL PREPARATION 025 completed Bacillus subtilis 1.5 billion cell-inulin 1 gram chewable tablet Chew by mouth. 05/24 024 completed hydrochlorothiazide 25 mg tablet TAKE 1 TABLET (25 MG TOTAL) BY MOUTH DAILY. active losartan 25 mg tablet TAKE 1 TABLET BY MOUTH EVERY DAY active Bacillus subtilis-inulin (CULTURELLE GUMMY) 1.5 billion cell-1 gram chew Take by mouth active hydroCHLOROthiazide (HYDRODIURIL) 25 mg tablet Take 1 tablet (25 mg total) by mouth 1 (one) time each day. active Probiotic Product (Probiotic Acidophilus) Chew Tab Chew 1 gummy daily. active Problems Problem Status Onset Date Problem Type Date of Resolution Source Osteoarthritis of right knee joint active 2025-01-31 7 ProblemAct [facility] T Essential hypertension active 2022-11-30 4 ProblemAct E[facility] Metabolic syndrome X active 2023-03-01 8 ProblemAct [facility] Severe obesity active 2024-11-30 0 ProblemAct [facility] Pain of right knee joint active 2025-01 6 ProblemAct [facility] Irregular periods active 2023-12-02 9 ProblemAct [facility] Primary hypertriglyceridemia active 2022-11-30 4 ProblemAct [facility] Motion sickness active 2023-12-02 9 ProblemAct [facility] Vitamin D deficiency active 2022-11-30 4 ProblemAct [facility] Overweight active EncounterDiagnosisAct [facility] T Encounter for screening for diabetes mellitus active EncounterDiagnosisAct [facility] T Screening for thyroid disorder active EncounterDiagnosisAct [facility] Essential hypertension active EncounterDiagnosi sAct [facility] T Hyperlipidemia, unspecified hyperlipidemia type active EncounterDiagnosisAct [facility] T Visit for counseling active 2023-06-03 1 ProblemAct [facility] Plantar fasciitis active 2022-11-30 4 ProblemAct [facility] 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 7 ProblemAct [facility] Obesity active 2022-11-30 4 ProblemAct [facility] Genetic testing active 2023-06-03 1 ProblemAct [facility] Insulin resistance syndrome active 2023-03-01 8 ProblemAct [facility] Motion sickness active 2023-12-02 9 ProblemAct [facility] Mammographic microcalcification active 2021-04-03 0 ProblemAct [facility] Obesity, Class III, BMI 40-49.9 (morbid obesity) (HCC) active EncounterDiagnosisAct [facility] Irregular menses active 2023-12-02 9 ProblemAct [facility] Weight loss due to medication active 2022-11-30 4 ProblemAct [facility] Scoliosis active 2022-11-30 4 ProblemAct [facility] Special screening for malignant neoplasms, colon active EncounterDiagnosisAct CT_THS FRA N Immunizations Vaccine Date Source Lot Number Status Influenza, injectable, Madin Autumn Canine Kidney, preservative free [facility]16/[id number] comple palomo Tdap 04/22/2022 [facility] [id number] completed Influenza, injectable, quadr ivalent, preservative free 07/31/2021 [facility] completed SARS-COV-2 (COVID-19) vaccin e, mRNA, spike protein, LNP, preservative free, 30 mcg/0.3mL dose 06/14/2021 [facility] [id number] completed Tdap 04/20/2021 [facility] completed Influenza Inactivated/Split Preservative Free IM 07/19/2020 [facility] [id number] completed Influenza, injectable, Madin Autumn Canine Kidney, preservative free, quadrivalent 08/22/2019 [facility] [id number] completed Influenza, injectable, Madin Alexis Canine Kidney, preservative free, quadrivalent 09/07/2018 [id number] completed Encounters Encounter Type Encounter Reason Primary Diagnosis Location Date Ambulatory [facility] 03/02/20 25 Ambulatory [facility] 03/01/20 25 Ambulatory [facility] 02/29/20 25 Ambulatory [facility] 02/29/20 25 Ambulatory [facility] 02/26/20 25 Ambulatory [facility] 02/26/20 25 Ambulatory [facility] 02/26/20 25 Ambulatory [facility] 02/26/20 25 Ambulatory [facility] 02/25/20 25 Ambulatory [facility] 02/25/20 25 Ambulatory [facility] 01/12/20 25 Ambulatory [facility] 01/12/20 25 Ambulatory Nutrition and Weight Loss Management- Follow up Obesity, class [address] [facility] 12/29/19 25 Ambulatory [place] [facility] 12/23/19 25 Ambulatory Nutrition and Weight Loss Management- Initial Overweight [facility] 12/16/19 25 Ambulatory [facility] 12/14/19 25 Ambulatory [facility] 12/10/19 25 Ambulatory [facility] 12/10/19 25 Ambulatory [facility] 12/08/19 25 Ambulatory [facility] 12/08/19 25 Ambulatory [facility] 11/20/19 25 Ambulatory [facility] 07/27/20 24 Ambulatory Encounter for screen ing for malignant neoplasm of colon Encounter for screening for malignant neoplasm of colon [facility] 07/13/20 24 Ambulatory [facility] 04/21/20 24 Ambulatory Follow-up Follow-up [facility] 12/29/19 24 Ambulatory [facility] 07/01/20 23 Ambulatory Follow-up Follow-up [facility] 07/01/20 23 Ambulatory Mammographic microcalcification found on diagnostic imaging of breast Mammographic microcalcification found on diagnostic imaging of breast [facility] 06/23/20 23 Ambulatory Essential (prima ry) hypertension [facility] 03/18/20 23 Ambulatory Encounter for re moval of sutures [facility] 02/21/20 23 Ambulatory Essential (prima ry) hypertension [facility] 12/17/19 23 Care Team Organization Name Specialty Phone Email Start Date End Da te [facility] 12/24/2024 01/22/[address] [facility] NO PCP Primary Care 12/15/2024 [facility], 12/03/2024 [facility] 07/28/2024 [facility] Primary Care 07/15/2024 [facility] Primary Care 07/13/[address] [facility] Primary Care 2023 [facility] 01/30/2024 [facility] 07/04/2023 024 [facility] 06/26/2023 [facility] 02/13/2023 [facility] JESSICA MENDOZA Primary Care 02/12/2023 [facility] JESSICA MENDOZA Primary [facility] 12/16/20222024 [facility] PAULINE VALDES Primary Care 04/30/2021 04/30/2021 [facility] JESSICA MENDOZA Primary Care
--- OUTSIDE RECORDS SUMMARY | 2025-03-08 15:02 | XMS_ITS | Data Portability ---
Author Organization [place] [facility] [place] Address [address] [place] [address] Care Team Providers Care Panel Beater Name Role Phone EBONI BENÍTEZ Primary Care Provider [phone] EBONI BENÍTEZ Referring Provider [phone] Assessment Encounter Date Assessment Date Assessment LastModified by Organization Details LastModified Time 02/25/2025 02/25/2025 Symptoms and exam are consistent with Right greater than left Knee Osteoarthritis. X-rays were reviewed together on the computer together. We reviewed the natural history of osteoarthritis. Diagrams and a model were used to demonstrate the areas of arthritic change. The patient understands that symptoms may progress over time requiring further intervention. We discussed in detail available treatment options. We discussed activity modification, especially avoiding impact type activities. Low or no impact activities such as walking, swimming, elliptical and biking were suggested. We discussed the need for an ongoing maintenance flexibility and strengthening program. This should involve the core musculature, the hip, as well as the quadriceps and hamstrings. Intermittent icing 20 minutes off in 3 to 4 times a day may be helpful for control of swelling. A course of Physical Therapy may be helpful with acute symptoms and progress to a targeted home exercise program. Azbv-fwv-tgjvjft anti-inflammator y medications with appropriate GI precautions or Tylenol may be helpful in controlling intermittent symptoms of pain. An assistive device such as a cane may be helpful in unloading the joint. The role of bracing was discussed including off loading brace. Advantages, disadvantages, and limitations of braces were discussed. Advantages of weight loss and maintaining ideal weight was discussed. Injections options, including corticosteroids, gel (Hyaluronic Acid), and platelet rich plasma (PRP) injections were reviewed. After our discussion, the patient wished to proceed with right intra-articular knee injection. Patient tolerated the injection well. Postinjection instructions given. Frequency of injection was reviewed. Patient will follow-up in 3 to 4 weeks if symptoms have not improved, sooner for any complications. All questions answered to their satisfaction. Patient was seen and evaluated by Ramon Poole PA-C in indirect conjunction with Dr. Horner. The provider agrees with the history, physical examination, recommended tests/diagnostic imaging, and treatment plan. [email or web address] Not available 02/25/2025 13:04:39 02/28/2025 02/28/2025 HPI 50yo female presents to the office today for evaluation of chronic low back pain. She was diagnosed with juvenile scoliosis and treated with a back brace until about age 20. She reports she has a double S curve. She has always had some degree of back pain, however this has been consistently worse since baring children. Today she reports consistent tightening spasms and flareups of pain 3-4 times per year. This radiates to her lower extremities bilaterally. She has not been formally treated in many years. No history of surgery or injections. Denies saddle anesthesia. Denies bowel or bladder incontinence. Denies fevers, chills, or unexplained weight loss. Denies sleep disturbance. EXAM Constitutional: appears well developed, in no acute distress. Respiratory: no respiratory distress Cardiovascular: Palpable radial/pedal pulses bilaterally. Musculoskeletal: Normal gait/trendele nburg/antaglic gait, forward list, kyphotic posture Neck: Inspection of the cervical spine is unremarkable, no deformity noted. Nontender to palpation over midline cervical spine or paraspinal musculature. Back: Inspection of the thoracolumbar spine is unremarkable. No deformity noted. Nontender to palpation over midline thoracolumbar spine or paraspinal musculature. Nontender to palpation over b/l SI joints. Neurologic: Sensation grossly intact to light touch in bilateral upper and lower extremities. 5/5 strength with shoulder abduction, flexion/extensio n of the elbow and wrist, and finger abduction bilaterally. Non-tender, no palpable masses bilaterally. Literature Professor strength strong and equal bilaterally. 5/5 strength with hip flexion, knee flexion/extensio n, dorsi/plantar flexion, and EHL bilaterally. Non-tender, no palpable masses bilaterally. Negative straight leg raise bilaterally, Negative Femoral stretch bilaterally Able to toe raise and heel walk bilaterally Reflexes are normoactive in bilateral upper and lower extremities. Normal tone in all 4 extremities. Negative Urbano s bilaterally. Negative Clonus bilaterally. Negative Babinski bilaterally. Negative Rhomberg test. Skin: skin intact PLAN 50-year-old female with symptomatic thoracolumbar levoscoliosis, lower apex at L2-L3. I had a long discussion with her today regarding the natural history and treatment options. She is interested in surgical intervention. We discussed this today. Most likely we will schedule her for two-level DLIF. Will send her for standing scoliosis radiograph series as well as MRI of the lumbar spine. She will follow-up with Dr. Frye after the scans. Patient was seen and evaluated by Jessee Cohn PA-C in indirect conjunction with Arden Frye MD. He agrees with history, physical examination, tests/diagnostic imaging, and treatment plan. Not available 03/01/2025 10:01:11 Plan of Treatment Reminders Order Date Submit Date Provider Last Modified By Organization Details Last Modified Time Details Appointments RESULTS 2024 02:45P Ying Frye MD Not available Not available Not available Lab None recorded. Referral None recorded. Procedures None recorded. Surgeries None recorded. Imaging XR, spine, scoliosis series - Surgical planning, thoracolu mbar scoliosis , please measure 2024 025 [facility], [address], [place], [address], 03/03/2025 15:16:17 MRI, lumbar spine, w/o contrast - Chronic low back pain with bilateral sciatica, S-curve scoliosis , juvenile, surgical planning 2024 025 [facility] [address], [place], [address], 03/03/2025 14:54:40 XR, thoracic spine, 2 view 2024 025 [email or web address] [facility], [address], [place], [address], 02/28/2025 16:11:36 XR, lumbosacr al spine, 2 or 3 view 2024 025 [email or web address] [facility], [address], [place], [address], 02/28/2025 16:11:36 XR, knee, 3 view 2024 025 [email or web address] 1 [facility], [address], [place], [address], 02/25/2025 17:18:45 XR, knee, 3 view 2024 025 [email or web address] 1 [facility], [address], [place], [address], 02/25/2025 17:18:45 Medication Orders lidocaine (PF) 100 mg/5 mL (2 %) injection syringe 2024 025 [email or web address] 5 Not available 02/25/2025 13:23:11 triamcino lone acetonide 40 mg/mL suspensio n for injection 2024 025 [email or web address] 5 Not available 02/25/2025 13:23:12 Patient TargetsNo targets recorded. Patient Instructions Encounter Date Encounter Id Patient Instructions Last Modified By Organization Details Last Modified Time 02/25/2025 [id number] X-ray examinatio n of both knees was obtained in the [place] office on 02/25/2025. X-rays demonstrated normal bone mineralization. Joint space narrowing in the medial and patellofemoral compartment of the right knee. Minor changes on the left. Images interpreted by: Ramon Poole PA-C [email or web address] Not available 02/25/2025 13:03:28 02/28/2025 [id number] views of the thoracolumbar spine were obtained today 02/28/2025 in the [place] office. There is significant levoscoliosis of the lumbar spine and resultant moderate to severe multilevel disc space narrowing. Overall mild S curvature through the thoracic spine. Not available 03/01/2025 10:02:34 Reason for Referral None Reported. Problems Name Problem SNOMED Code Status Onset Date Resolution Date Notes Provider Name and Address Organization Details Recorded Time Osteoarthri tis of right knee joint [id number] 00 Active 2024 RAMON POOLE PA-C [address], [place], [address], [place] [facility] 13:04:17 Problem Notes None recorded. Procedures Surgical History Date Name Laterality Status Provider Name and Address Organization Details Recorded Time MELA Knee Injection completed RAMON POOLE PA-C [address], [place], [address], [place] [facility] 02/25/2025 13:00:18 Imaging Results None recorded. Procedure Notes None recorded. Medical Equipment None Reported. Allergies No known drug allergies Medications Name Sig Start Date Stop Date Status Note LastModified by Organization Details LastModified Time fluconazole 150 mg tablet TAKE 1 TABLET BY MOUTH ONCE 02/25 completed Not Available Not Available Not Available phentermine 15 mg capsule TAKE 1 CAPSULE BY MOUTH EVERY DAY 02/25 completed Not Available Not Available Not Available triamcinolo ne acetonide 40 mg/mL suspension for injection Take 40 mg by injection route. 2024 active Not Available Not Available Not Avai lable losartan 25 mg tablet TAKE 1 TABLET BY MOUTH EVERY DAY active Not Available Not Available No t Available hydrochloro thiazide 25 mg tablet TAKE 1 TABLET (25 MG TOTAL) BY MOUTH DAILY. active Not Available Not Available No t Available sodium,pota ssium,mag sulfates 17.5 gram-3.13 gram-1.6 gram oral soln TAKE 177 ML BY MOUTH SEE ADMIN INSTRUCTI ONS. USE DIRECTED FOR BOWEL PREPARATI ON 02/25 completed Not Available Not Available Not Available lidocaine (PF) 100 mg/5 mL (2 %) injection syringe Take 4 mL by injection route. 2024 active Not Available Not Available Not Avai lable Vitals Date Recorded Body height Body mass index (BMI) Body weight Provider Name and Address Organization Details Last Updated DateTime 02/25/2025 167.64 cm 40.4 kg/m2 403649.09 g Moriah Faye [place] [facility] 02/25/2025 11:34:18 Date Recorded Body height Body mass index (BMI) Body weight Provider Name and Address Organization Details Last Updated DateTime 02/28/2025 167.64 cm 40.4 kg/m2 829808.09 g Sangita Bernardo [place] [facility] 02/28/2025 13:03:09 Social History None recorded. Functional Status Question Answer Note LastModified by Organizat ion Details LastModified Time How many times per week do you consume alcohol? 3-4 times per week [email or web address] Information not available 02/25/2025 Do you use any illicit or recreational drugs? No Information not available 02/25/2025 Do you or have you ever used any other forms of tobacco or nicotine? No [email or web address] Information not available 02/25/2025 What is your level of alcohol consumption? Occasional [email or web address] Information not available 02/25/2025 Mental Status None recorded. Family History Relationship Description Onset Age of this Age Resolved Age Notes LastModified by Organization Details LastModified Time Mother History of cancer of unknown primary site [email or web address] Not available 11:34:58 Father Diabetes mellitus [email or web address] Not available 02/25 11:35:06 Father Heart disease [email or web address] Not available 02/25 11:35:16 Father Hyperlipidem ia [email or web address] Not available 02/25 11:35:33 Brother Heart disease [email or web address] Not available 02/25 11:35:19 Brother Hyperlipidem ia [email or web address] Not available 02/25 11:35:30 Medical History Condition Response Coronary Artery Disease N Gout N Hyperthyroidism N MRSA N Blood Transfusion N Emphysema N Hypothyroidism N COPD N Depression N Pacemaker N Vascular Disease N Gastrointestinal Disease N Anxiety Disorder N Autoimmune disease N Arthritis N Cancer N Stroke N High Cholesterol N Neurologic Disorder N Liver Disease N Organ Transplant N Arrhythmia N Rheumatoid Arthritis N Fibromyalgia N Kidney Disease N Allergies/Hayfever N Adverse Reaction to Anesthesia N Thyroid Problems N Anemia N Brain Injury N Heart Attack ([place]) N Osteopenia N Diabetes N Bleeding Disorder N Seizures/Epilepsy N AIDS/HIV N Congestive Heart Failure (CHF) N Asthma N Amputation N Reflux/GERD N Sleep Apnea N Hepatitis N Aneurysm N Heart Disease N Pulmonary Embolism N Hypertension Y Osteoporosis N Gynecological HistoryNo gynecological history recorded. Obstetrics History GPAL:G 0 P 0 0 0 0 Past Encounters Encounter ID Performer Location Encounter Start Date Encounter Closed Date Diagnosis/Indication Diagnosis SNOMED-CT Code Diagnosis ICD10 Code Diagnosis Note [id number] RAMON POOLE PA-C [address] [address] 02/25/2025 11:11:31 02/25/2025 12:21:56 Pain of right knee joint 2347784728 25088 M25.561 Pain of le ft knee region 6360121908 93805 M25.562 Osteoarthr itis of right knee joint 9246571925 82126 M17.11 [id number] K[address]JIT RED[address] [address] 02/28/2025 12:45:42 02/28/2025 13:40:12 Low back pain 747804309 M54.50 Thoracic back pain 61285 8004 M54.6 Idiopathic scoliosis of lumbar spine 387356994 M41.26 Health Concerns Section Related Observation LastModified by Organization Detai ls LastModified Time None Recorded Concern Status LastModified by Organization Details LastModified Time None Recorded Advance Directives Directive None Recorded Payers Insurance Date Sequence Insurance Name Policy Number Policy Nunez Covered Member ID Nunez Member ID Guarantor Name 03/02/[address] [place] [address] [id number] Wendy Dickinson [id number] Wendy Dickinson Notes Date Note Type Note Provider Name and Address Organization Details Recorded Time 02/25/2025 text/html Patient is a 42-year-old female who presents today with bilateral knee pain. Pain is primarily on the right side, but does have both knees with some discomfort. No recent injury or trauma. She has focused on weight loss but having difficulty because of her knees. Symptoms are starting to again limit her activity and she is frustrated. No numbness or tingling. No weakness. Symptoms been present for years, but recently have been progressing with activity. RAMON POOLE PA-C [address], [place], [address], [place] [facility] 02/25/2025 13:06:07 OBGyn Episode No OBEpisode recorded.
== END 2025-03-08 14:08 | disposition home or self-care (01) ==
LOC: HO.XRAY 14:07
PROVIDERS: Visit Provider Student in an Organized Health Care Education/Training Program
DX: M41.26 Other idiopathic scoliosis, lumbar region (principal)
CPT/HCPCS: 72082

== ENCOUNTER → 2025-03-08 14:30 | Outpatient (BNV) | payer OTHER, SELFPAY | PROVIDERS: Visit Provider Radiology Diagnostic Radiology | DX: M41.86 Other forms of scoliosis, lumbar region (principal) | CPT/HCPCS: 72082 ==